=== PATIENT | female | born 1960 | race Caucasian/White ===

== ENCOUNTER 2017-08-28 12:55 | Outpatient (CLI) | payer BC ==
--- NOTE | 2017-08-28 15:53 | MMO ---
MAMMOGRAM DIGITAL SCREENING BILATERAL: DATE: 08/28/17 HISTORY: 57-year-old female for routine bilateral screening mammogram. COMPARISON: 12/31/13 and 04/03/15. TECHNIQUE: Digital mammographic views. Computer-aided detection (CAD) utilized. FINDINGS: There are scattered areas of fibroglandular density. There is no evidence of suspicious mass, suspicious calcifications, or architectural distortion. The re is no significant interval change since the prior mammogram. IMPRESSION: 1. BIRADS 1 - Negative. 2. Recommendation: routine bilateral annual screening mammogram (unless the patient develops suspici ous clinical findings that would warrant earlier imaging follow up). aidan [] POS: [facility]
== END 2017-08-28 12:56 | disposition home or self-care (01) ==
LOC: SCSMAMMO 12:55
PROVIDERS: ATTEND Obstetrics & Gynecology
DX: Z12.31 Encounter for screening mammogram for malignant neoplasm of breast (principal)
CPT/HCPCS: 77067